=== PATIENT | female | born 2005 | race Hispanic/Latino ===

== ENCOUNTER 2023-03-28 11:48 | Emergency (ER) | payer MEDICAID ==
[~2023-03-28] VITALS: Ht 162.6 cm; Wt 45.8 kg
[2023-03-28 12:35] LABS: APPEARANCE,URINE CLOUDY (CLEAR); BILIRUBIN,URINE NEGATIVE (NEGATIVE); COLOR,URINE YELLOW (YELLOW); GLUCOSE, URINE (UA) NEGATIVE (NEGATIVE); HCG,QUALITATIVE URINE POSITIVE (NEGATIVE); KETONES,URINE 150 mg/dL (NEGATIVE); LEUKOCYTE ESTERASE ,URINE 25 Leu/uL (NEGATIVE); NITRATE,URINE NEGATIVE (NEGATIVE); OCCULT BLOOD,URINE SMALL (NEGATIVE); PROTEIN,URINE 20 mg/dL (NEGATIVE); UROBILINOGEN,URINE 0.2 mg/dL (0.2-1.0)
[2023-03-28 12:35] LABS: BASOPHILS % (AUTO) 0.4 % (0.0-5.0); EOSINOPHILS % (AUTO) 0.4 % (0.0-8.0); HEMATOCRIT 39.4 % (36-48); LYMPHOCYTES % (AUTO) 17.2 % (21.0-51.0); MEAN CORPUSCULAR HEMOGLOBIN 26.9 pg (27.0-33.0); MEAN CORPUSCULAR HGB CONC 33.5 g/dL (32.0-36.0); MEAN CORPUSCULAR VOLUME 80.4 fL (80-100); MONOCYTES % (AUTO) 5.8 % (3.0-13.0); NEUTROPHILS % (AUTO) 75.8 % (40.0-77.0); PLATELET COUNT (AUTO) 246 K/uL (130-400); RED CELL DISTRIBUTION WIDTH 13.6 % (11.0-15.5); WHITE BLOOD COUNT (AUTO) 9.9 K/uL (4.8-10.8)
[2023-03-28 12:36] LABS: BACTERIA,URINE RARE /HPF (None Seen); MUCUS,URINE FEW LPF (None Seen); RBC,URINE 51-100 /HPF (0-1); SQUAMOUS EPITHELIAL CELL,UR MOD /HPF (0-2)
[2023-03-28 12:45] LABS: CREATININE 0.6 mg/dL (0.5-1.5); POTASSIUM 3.8 mmol/L (3.5-5.1)
[2023-03-28 12:49] LABS: ALBUMIN 3.6 g/dL (3.5-5.0); TOTAL PROTEIN, SERUM 7.7 g/dL (6.0-8.3)
[2023-03-28] MEDS ORDERED: CEFTRIAXONE 1G VIAL IVPB ONE (14:30)
[2023-03-28] MEDS ORDERED: 0.9%NACL 1000ML 1,000 ML IV ONE (14:30)
[2023-03-28] MEDS ORDERED: CEPH500B PO (15:17)
[2023-03-28 15:42] VITALS: BP 111/73; PULSE 67; RESP 20
== END 2023-03-28 17:10 | disposition home or self-care (01) ==
LOC: EDH 11:48
DX: O23.41 Unspecified infection of urinary tract in pregnancy, first trimester (principal); N39.0 Urinary tract infection, site not specified; Z3A.12 12 weeks gestation of pregnancy
CPT/HCPCS: 99285; 96365; 76801; 80053; 84702; 85025; 86900; 86901; 81001; 81025; 36415; J7030; J0696

== ENCOUNTER 2023-08-19 18:37 | Emergency (ER) | payer MEDICAID ==
[~2023-08-19] VITALS: Ht 152.4 cm; Wt 52.6 kg
[~2023-08-19 18:37] MED LIST: CEPH500B PO
[2023-08-19 18:38] VITALS: BP 120/70; PULSE 110; RESP 16
[2023-08-19 19:08] LABS: RAPID GROUP A STREP negative (NEGATIVE)
[2023-08-19 19:10] LABS: SARS-CoV-2, RNA, NAAT NEGATIVE SARS CoV-2 (NEGATIVE)
[2023-08-19 19:21] LABS: INFLUENZA TYPE B Negative For Type B (NEGATIVE)
[2023-08-19 20:09] LABS: INFLUENZA TYPE A Positive For Type A (NEGATIVE)
[2023-08-19] MEDS ORDERED: OSELTAMIVIR PHOSPHATE 75 MG CAP PO ONE (21:00)
[2023-08-19] MEDS ORDERED: OSEL75 PO (21:00)
[2023-08-19] MEDS ORDERED: BENZONATATE 100 MG CAPSULE PO ONE (21:00)
== END 2023-08-19 21:20 | disposition home or self-care (01) ==
LOC: EDH 18:37
DX: J10.1 Influenza due to other identified influenza virus with other respiratory manifestations (principal); J45.909 Unspecified asthma, uncomplicated; Z20.822 Contact with and (suspected) exposure to COVID-19; Z98.890 Other specified postprocedural states
CPT/HCPCS: 99283; 87635; 87880; 87804 ×2; C9803

== ENCOUNTER 2024-09-22 08:43 | Emergency (ER) | payer MEDICAID ==
[~2024-09-22] VITALS: Ht 152.4 cm; Wt 53.1 kg
[~2024-09-22 08:43] MED LIST changes: -CEPH500B PO; +PREN-94 PO
[2024-09-22 09:10] LABS: BILIRUBIN,URINE NEGATIVE (NEGATIVE); COLOR,URINE YELLOW (YELLOW); GLUCOSE, URINE (UA) NEGATIVE (NEGATIVE); KETONES,URINE NEGATIVE (NEGATIVE); LEUKOCYTE ESTERASE ,URINE NEGATIVE Leu/uL (NEGATIVE); NITRATE,URINE NEGATIVE (NEGATIVE); OCCULT BLOOD,URINE MODERATE (NEGATIVE); PROTEIN,URINE NEGATIVE (NEGATIVE); UROBILINOGEN,URINE 0.2 mg/dL (0.2-1.0)
[2024-09-22 09:11] LABS: ADD UA MICROSCOPIC YES; APPEARANCE,URINE SLIGHTLY CLOUDY (CLEAR)
[2024-09-22 09:22] LABS: BACTERIA,URINE Rare /HPF (None Seen); RBC,URINE 26-50 /HPF (0-1); WBC,URINE None Seen /HPF (0-1)
--- NOTE | 2024-09-22 09:23 | ERN ---
ED Note History of Present Illness Stated Complaint: OB,20 Chief Complaint: OB<20 weeks gest. Time Seen by MD: 09:09 Allergies: Coded Allergies: iodine (Unverified Allergy, Unknown, 09/22/24) shrimp (Unverified Allergy, Unknown, 09/24/23) wheat (Unverified Allergy, Unknown, 09/24/23) Home Meds Reported Medications #103/Iron Fumarate/FA ( Tablet) 27 Mg Iron-1 Mg Tablet, 1 EACH PO DAILY, TAB 09/26/23 Past Medical History Dictation Patient is currently G-tube P 1 proximally five weeks by dates. Last menstrual period was August 12. She did have a test and did go to a [facility] which was also positive. Presents with mother and all. No ultrasound. Patient did have intercourse last night. This morning she noticed that she had some vaginal spotting. Initially she thought it was after a BM but she kept an eye on it and has developed spotting with wiping even without bowel movements. She is also now having some mild suprapubic cramps. Comes in for evaluation. Patient reports she has taken over six test which were all positive including at the clinic. She has some of them with her. Past Medical History: No Pertinent History Surgical History: None Surgical History Other: HERNIA REPAIR LMP: Aug 12, 2024 : 2 Para: 1 Aborts: 0 Review of System Dictation Ten systems reviewed and negative except as noted in HPI Initial Vital Sign VS Vital Signs Date Time Temp Pulse Resp B/P (MAP) Pulse Ox O2 Delivery O2 Flow Rate FiO2 09/22/24 08:45 98.2 94 18 121/70 98 Room Air 0 09/22/24 08:49 21 Physical Exam Dictation GEN: non toxic, NAD HEENT: atrumatic, PERRL, EOMI, conjunctivae normal NECK: Soft supple nontender Heart RRR, no murmurs Chest: No deformity Lungs: Lungs clear to auscultation Ab: Soft nondistended nontender Back: No midline step-offs. No gross deformity. No CVA tenderness : m/s: Moving all four extremities. No gross deformity Neuro: CN 2-12 intact. Moving all four extremities. Psych: Cooperative Results (Laboratory/Radiology) Laboratory/Radiology Laboratory Tests Test 09/22/24 09:04 09/22/24 09:31 Urine Color YELLOW (YELLOW) Urine Appearance SLIGHTLY CLOUDY (CLEAR) Urine pH 6.0 (5.0-8.0) Urine Specific [place] 1.020 (1.001-1.031) Urine Protein NEGATIVE mg/dL (NEGATIVE) Urine Glucose (UA) NEGATIVE mg/dL (NEGATIVE) Urine Ketones NEGATIVE mg/dL (NEGATIVE) Urine Occult Blood MODERATE (NEGATIVE) H Urine Nitrate NEGATIVE (NEGATIVE) Urine Bilirubin NEGATIVE mg/dL (NEGATIVE) Urine Urobilinogen 0.2 mg/dL (0.2-1.0) Urine Leukocyte Esterase NEGATIVE Christen/uL Urine RBC 26-50 /HPF (0-1) H Urine WBC None Seen /HPF (0-1) Urine Squamous Epithelial Cells 2-5 /HPF (0-2) Urine Bacteria Rare /HPF (None Seen) White Blood Count 8.4 K/uL (4.8-10.8) Red Blood Count 4.98 MIL/uL (4.00-5.50) Hemoglobin 12.1 g/dL (12.0-16.0) Hematocrit 38.2 % (36-48) Mean Corpuscular Volume 76.7 fL (80-100) L Mean Corpuscular Hemoglobin 24.3 pg (27.0-33.0) L Mean Corpuscular Hemoglobin Concent 31.7 g/dL (32.0-36.0) L Red Cell Distribution Width 16.2 % (11.0-15.5) H Platelet Count 265 K/uL (130-400) Mean Platelet Volume 11.2 fL (7.5-10.5) H Immature Granulocyte % (Auto) 0.2 % (0-1) Neutrophils (%) (Auto) 65.1 % (40.0-77.0) Lymphocytes (%) (Auto) 25.8 % (21.0-51.0) Monocytes (%) (Auto) 7.3 % (3.0-13.0) Eosinophils (%) (Auto) 1.0 % (0.0-8.0) Basophils (%) (Auto) 0.6 % (0.0-5.0) Neutrophils # (Auto) 5.4 K/uL (1.8-7.7) Lymphocytes # (Auto) 2.2 K/uL (1.0-4.8) Monocytes # (Auto) 0.6 K/uL (0.1-1.0) Eosinophils # (Auto) 0.08 K/uL (0.00-0.70) Basophils # (Auto) 0.05 K/uL (0.00-0.20) Absolute Immature Granulocyte (auto 0.02 K/uL (0-1) Nucleated Red Blood Cells 0.0 % (0.0-0.19) Red Blood Cell Morphology See comments Sodium Level 140 mmol/L (136-145) Potassium Level 3.6 mmol/L (3.5-5.1) Chloride Level 107 mmol/L (101-111) Carbon Dioxide Level 22 mmol/L (21-32) Blood Urea Nitrogen 9 mg/dL (7-18) Creatinine 0.7 mg/dL (0.5-1.0) Glomerular Filtration Rate Calc 126 mL/min (>90) Random Glucose 120 mg/dL (70-105) H Total Calcium 8.6 mg/dL (8.5-10.1) Total Bilirubin 0.2 mg/dL (0.2-1.0) Aspartate Amino Transf (AST/SGOT) 11 U/L (10-37) Alanine Aminotransferase (ALT/SGPT) 15 U/L (12-78) Alkaline Phosphatase 129 U/L (50-136) Total Protein 7.7 g/dL (6.0-8.3) Albumin 3.9 g/dL (3.5-5.0) Human Chorionic Gonadotropin, Quant 3 mIU/mL (0-5) Blood type is O positive Ultrasound Comment: PATIENT: WILDA JASSO MR#: [id number] : 2005 SEX: F AGE: 19 LOCATION: [facility] ORDER 0 STATUS: REG REPORT#: [id number] SERVICE 8 REASON: vag bleeding ORDERING PHYSICIAN: EMY SALMERON MD PROCEDURE: OB <14 - US OB <14 WEEKS US OB <14 WEEKS REASON: vag bleeding COMPARISON: None TECHNIQUE: Routine pelvic sonogram was performed. FINDINGS: Uterus is 7.4 x 2.9 x 5.5 cm. Endometrium is 3 mm. There is no evidence of an intrauterine gestational sac. There is no endometrial thickening. These findings are nonspecific in view of positive test. Less than 5 week gestation can cause this appearance as can spontaneous miscarriage or an unruptured and nonvisualized ectopic . Both ovaries appear normal. There are no adnexal masses. There is no free fluid. IMPRESSION: 1. Normal pelvic sonogram, no current evidence of an intrauterine gestation. DICTATED BY: YLDIA SEQUEIRA MD DATE: 09/22/24 1016 ELECTRONICALLY SIGNED BY: LYDIA SEQUEIRA MD DATE: 09/22/24 1022 ED Course ED Course Orders Procedure Category Date Status Time Urinalysis Profile LAB 09/22/24 Complete 09:03 Abo/Rh BBK 09/22/24 Complete 09:19 Us Ob <14 Weeks US 09/22/24 Resulted 09:19 Cbc With Differential LAB 09/22/24 Complete 09:19 Comprehensive LAB 09/22/24 Complete Metabolic Panel 09:19 Hcg,Quantitative LAB 09/22/24 Complete 09:19 Urinalysis LAB 09/22/24 Logged W/Microscopic 09:19 Vital Signs Date Time Temp Pulse Resp B/P (MAP) Pulse Ox O2 Delivery O2 Flow Rate FiO2 09/22/24 08:49 98.2 94 18 121/70 98 Room Air* 0 21 09/22/24 08:45 98.2 94 18 121/70 98 Room Air 0 Medical Decision Making MDM We will check labs. Ultrasound. Currently patient is not . HCG level not consistent with an ultrasound also does not show . Patient reports 6 positive tests up till now including at the clinic. She has some of them with her. Does appear patient likely miscarried at early term. HCG three here which is negative test for us this. This is discussed with the patient and [id number]. I did let her know she may continue having cramping and bleeding. Patient discharged. DX & DISP Disposition: Discharge Departure Impression: Primary Impression: Miscarriage Condition: Stable Additional Instructions: Ibuprofen [id number] as needed for pain and discomfort He may experience intermittent cramping and bleeding Follow with your OBGYN Return for any worsening symptoms, dizziness lightheadedness, or any other concerns Referrals: DORIS CASIANO (PCP) EMY SALMERON MD Sep 22, 2024 09:23
[2024-09-22 09:38] LABS: BASOPHILS # (AUTO) 0.05 K/uL (0.00-0.20); BASOPHILS % (AUTO) 0.6 % (0.0-5.0); EOSINOPHILS # (AUTO) 0.08 K/uL (0.00-0.70); HEMATOCRIT 38.2 % (36-48); IMMATURE GRANULOCYTE ABSOLUTE 0.02 K/uL (0-1); LYMPHOCYTES # (AUTO) 2.2 K/uL (1.0-4.8); LYMPHOCYTES % (AUTO) 25.8 % (21.0-51.0); MEAN CORPUSCULAR HEMOGLOBIN 24.3 pg (27.0-33.0); MEAN CORPUSCULAR HGB CONC 31.7 g/dL (32.0-36.0); MEAN CORPUSCULAR VOLUME 76.7 fL (80-100); MONOCYTES # (AUTO) 0.6 K/uL (0.1-1.0); MONOCYTES % (AUTO) 7.3 % (3.0-13.0); NEUTROPHILS # (AUTO) 5.4 K/uL (1.8-7.7); NEUTROPHILS % (AUTO) 65.1 % (40.0-77.0); PLATELET COUNT (AUTO) 265 K/uL (130-400); RED BLOOD CELL COUNT(AUTO) 4.98 MIL/uL (4.00-5.50); RED CELL DISTRIBUTION WIDTH 16.2 % (11.0-15.5); WHITE BLOOD COUNT (AUTO) 8.4 K/uL (4.8-10.8)
[2024-09-22 09:46] LABS: CREATININE 0.7 mg/dL (0.5-1.0); POTASSIUM 3.6 mmol/L (3.5-5.1)
[2024-09-22 09:57] LABS: ALBUMIN 3.9 g/dL (3.5-5.0); BILIRUBIN,TOTAL 0.2 mg/dL (0.2-1.0); TOTAL PROTEIN, SERUM 7.7 g/dL (6.0-8.3)
--- NOTE | 2024-09-22 10:22 | HMCIMG ---
US OB <14 WEEKS REASON: vag bleeding COMPARISON: None TECHNIQUE: Routine pelvic sonogram was performed. FINDINGS: Uterus is 7.4 x 2.9 x 5.5 cm. Endometrium is 3 mm. There is no evidence of an intrauterine gestational sac. There is no endometrial thickening. These findings are nonspecific in view of positive test. Less than 5 week gestation can cause this appearance as can spontaneous miscarriage or an unruptured and nonvisualized ectopic . Both ovaries appear normal. There are no adnexal masses. There is no free fluid. IMPRESSION: 1. Normal pelvic sonogram, no current evidence of an intrauterine gestation.
[2024-09-22 10:54] VITALS: BP 136/91; PULSE 83; RESP 18; TEMP 98.2; O2SAT 97
== END 2024-09-22 10:55 | disposition home or self-care (01) ==
LOC: EDH 08:43
DX: O03.9 Complete or unspecified spontaneous abortion without complication (principal); O26.891 Other specified pregnancy related conditions, first trimester; R10.2 Pelvic and perineal pain; Z91.041 Radiographic dye allergy status; Z98.890 Other specified postprocedural states; Z88.8 Allergy status to other drugs, medicaments and biological substances; Z3A.01 Less than 8 weeks gestation of pregnancy
CPT/HCPCS: 36415; 76801; 80053; 81001; 84702; 85025; 86900; 86901; 99284